=== PATIENT | female | born 1995 | race American Indian/Alaskan Native ===

== ENCOUNTER 2019-02-04 15:18 | Emergency (ER) | payer SELFPAY ==
--- NOTE | 2019-02-04 15:26 | Event Note ---
ED Screening Note ED Screening Note: suprapubic pain sp period last week no discharge not concerned for sti negrete with urination This initial assessment/diagnostic orders/clinical plan/treatment(s) is/are subject to change based on patients health status, clinical progression and re- assessment by fellow clinical providers in the ED. Further treatment and workup at subsequent clinical providers discretion. Patient/guardian urged not to elope from the ED as their condition may be serious if not clinically assessed and managed. Initial orders include: ua preg
[2019-02-04 15:28] VITALS: BP 118/69
[2019-02-04 17:11] LABS: Bilirubin,Urine NEG (Negative); Blood,Urine MOD (Negative); Color,Urine Yellow (Yellow); Mucus,Urine FEW /HPF; Urobilinogen,Urine < 2.0 mg/dL (<2.0)
[2019-02-04 17:14] LABS: WBC,Urine > 182.0 /HPF (0.0-6.0)
[2019-02-04] MEDS ORDERED: ROCEPHIN/NS 1 GM/50 ML 1 GM/50 ML BAG IV ONE ×2 (17:15→20:02)
[2019-02-04] MEDS ORDERED: NACL 0.9% 1000 ML 1,000 ML IV ONE (17:15)
[2019-02-04 17:16] LABS: HCG Qualitative,Urine Negative (Negative)
[2019-02-04 17:33] LABS: Hemoglobin 13.6 gm/dl (10.1-14.3); Mean Corpuscular HGB Conc 34 % (30-34); Mean Corpuscular Volume 94 fl (79-97); Platelet Count 184 K/mm3 (140-440); Red Blood Count 4.27 M/mm3 (3.65-5.03); Red Cell Distribution Width 14.3 % (13.2-15.2)
[2019-02-04 17:58] LABS: BUN/Creatinine Ratio 13; Blood Urea Nitrogen 10 mg/dL (7-17); Calcium 9.7 mg/dL (8.4-10.2); Hemolysis Index 5
--- NOTE | 2019-02-04 20:08 | Emergency Department Report ---
ED Female HPI - General Chief complaint: Urogenital-Female Stated complaint: BLADDER INFECTION/BACK PAIN Time Seen by Provider: 02/04/19 15:25 Source: patient Mode of arrival: Ambulatory Limitations: No Limitations - History of Present Illness MD Complaint: dysuria -: Gradual, week(s) (1) Location: suprapubic Radiation: non-radiating Severity: mild Quality: burning Consistency: constant Improves with: none Worsens with: urination Associated Symptoms: dysuria. denies: denies other symptoms, vaginal discharge, vaginal bleeding, loss of appetite, hematuria, shortness of breath, syncope - Related Data Sexually active: Yes Previous Rx's Medication Instructions Recorded Last Taken Type Phenazopyridine [Pyridium] 200 mg PO BID PRN #10 tab 02/04/19 Unknown Rx Sulfamethoxazole/Trimethoprim 1 each PO BID #20 tablet 02/04/19 Unknown Rx [Bactrim Ds] Allergies Allergy/AdvReac Type Severity Reaction Status Date / Time No Known Allergies Allergy Unverified 02/04/19 15:19 ED Review of Systems ROS: Stated complaint: BLADDER INFECTION/BACK PAIN Other details as noted in HPI Comment: All other systems reviewed and negative ED Past Medical Hx - Past Medical History Previous Medical History?: No - Surgical History Past Surgical History?: No - Social History Smoking Status: Current Every Day Smoker Substance Use Type: None - Medications Home Medications: Home Medications Medication Instructions Recorded Confirmed Last Taken Type Phenazopyridine [Pyridium] 200 mg PO BID PRN #10 tab 02/04/19 Unknown Rx Sulfamethoxazole/Trimethoprim 1 each PO BID #20 tablet 02/04/19 Unknown Rx [Bactrim Ds] ED Physical Exam - General Limitations: No Limitations General appearance: alert, in no apparent distress - Head Head exam: Present: atraumatic, normocephalic - Eye Eye exam: Present: normal appearance - ENT ENT exam: Present: mucous membranes moist - Neck Neck exam: Present: normal inspection - Respiratory Respiratory exam: Present: normal lung sounds bilaterally. Absent: respiratory distress - Cardiovascular Cardiovascular Exam: Present: regular rate, normal rhythm. Absent: systolic murmur, diastolic murmur, rubs, gallop - GI/Abdominal GI/Abdominal exam: Present: soft, normal bowel sounds - Extremities Exam Extremities exam: Present: normal inspection - Back Exam Back exam: Present: normal inspection - Neurological Exam Neurological exam: Present: alert, oriented X3 - Psychiatric Psychiatric exam: Present: normal affect, normal mood - Skin Skin exam: Present: warm, dry, intact, normal color. Absent: rash ED Course Vital Signs 02/04/19 15:26 Temperature 98.6 F Pulse Rate 88 Respiratory 16 Rate Blood Pressure 118/69 O2 Sat by Pulse 99 Oximetry ED Medical Decision Making - Lab Data Result diagrams: 02/04/19 17:21 02/04/19 17:21 Critical care attestation.: If time is entered above; I have spent that time in minutes in the direct care of this critically ill patient, excluding procedure time. ED Disposition Clinical Impression: UTI (urinary tract infection), Hematuria Disposition: - TO HOME OR SELFCARE Is pt being admited?: No Does the pt Need Aspirin: No Condition: Stable Instructions: Phenazopyridine (By mouth), Dysuria (ED), Urinary Tract Infection in Women (ED) Prescriptions: Sulfamethoxazole/Trimethoprim [Bactrim Ds] 1 each PO BID #20 tablet Phenazopyridine [Pyridium] 200 mg PO BID PRN #10 tab PRN Reason: dysuria Referrals: PRIMARY CARE, [Primary Care Provider] - 3-5 Days [facility] [Provider Group] - 3-5 Days
[2019-02-04] MEDS ORDERED: NORCO 5/325 PO STA (20:40)
== END 2019-02-04 21:33 | disposition home or self-care (01) ==
LOC: ED 15:18
DX: N39.0 Urinary tract infection, site not specified (principal); R31.9 Hematuria, unspecified; F17.200 Nicotine dependence, unspecified, uncomplicated
CPT/HCPCS: 36415; 80048; 81001; 81025; 85027; 96365; 99283; J0696; J7030